=== PATIENT | male | born 1950 | race Caucasian/White ===

== ENCOUNTER 2017-03-27 14:49 | Inpatient (IN) | payer OTHER ==
[~2017-03-27] VITALS: Ht 193 cm; Wt 192.1 kg
[~2017-03-27 14:49] MED LIST: ACET325 PO; ALBU3IS INH; ALIGN PO; AMLO5 PO; AMOX1XR PO; ASCO500 PO; ASPI325EC; ASPI81CH PO; ASPI81EC PO; ATOR10 PO; BAYER CHEWABLE81 MG PO; BENA10 PO; BENA20 PO; BENAML10/5 PO; BENAML20/5 PO; BISA10S PR; BUME1 PO; BUME2 PO; Benadryl25 MG PO; CEPH500 PO; CHOL10002 PO; CIPR500 PO; CLIN300 PO; COLL250TO TOP; CYAN1000 PO; CYAN1000I PO; Ceftriaxone2 G2 IV; Cholestyramine R5 GM MC; Cipro500 MG PO; Clindamycin HC300 MG PO; DIPATR PO; DOCU100 PO; DOXY100 PO; FURO20 PO; FURO80; FURO80 PO; HYDR1TAB94 PO; INSLI100I SC; INSLI100I SQ; INSLI100I SUBQ; INSU100I6 SC; INSUASPI SC; INSULANI SC; INSULANI SQ; INSULANI SUBQ; INSULANPEN SC; INVOKANA300 MG PO; LEVFLO500 PO; LIRA0.6P SQ; LOSA25 PO; LOVA40 PO; METF500 PO; MULVITMINF PO; NYST100P TOP; Novolog100 UNIT/2 SC; Nystatin15 GM TP; POLY17UD PO; POLY500 PO; POTCHL20ER PO; PRED10 PO; SACC250C PO; SANTYL TP; SILSUL1TC TOP; SPIR25 PO; SPIR50 PO; SULTRIDS PO; TERB250 PO; VANCOMYCIN; Ventolin Soln3 ML INH
[2017-03-27 15:49] LABS: BASOPHILS ABSOLUTE AUTO 0.04 K/mm3 (0.00-0.23); BASOPHILS PERCENT AUTO 0 % (0-2); EOSINOPHILS ABSOLUTE AUTO 0.39 K/mm3 (0.00-0.68); EOSINOPHILS PERCENT AUTO 4 % (0-6); Hematocrit 37.9 % (37.0-53.0); Hemoglobin 12.8 g/dL (13.5-17.5); IMMATURE GRAN ABSOLUTE AUTO 0.02 K/mm3 (0.00-0.10); IMMATURE GRAN PERCENT AUTO 0 % (0-1); LYMPHOCYTES ABSOLUTE AUTO 1.87 K/mm3 (0.84-5.20); LYMPHOCYTES PERCENT AUTO 17 % (21-46); MONOCYTES ABSOLUTE AUTO 0.65 K/mm3 (0.16-1.47); MONOCYTES PERCENT AUTO 6 % (4-13); Mean Corpuscular HGB 29.1 pg (26.0-34.0); Mean Corpuscular HGB Conc 33.8 g/dL (31.5-36.5); Mean Corpuscular Volume 86 fL (80-100); Mean Platelet Volume 10.7 fL (9.1-12.4); NEUTROPHILS ABSOLUTE AUTO 7.81 K/mm3 (1.96-9.15); NEUTROPHILS PERCENT AUTO 73 % (41-73); Platelet Count 217 K/mm3 (150-400); RDW Coefficient Variation 14.2 % (11.7-14.2); RDW Standard Deviation 44.8 fL (35.1-46.3); White Blood Cell Count 10.78 K/mm3 (4.00-11.30)
[2017-03-27 16:48] LABS: Anion Gap 7 mmol/L (6-16); Blood Urea Nitrogen 23 mg/dL (8-24); Bun/Creatinine Ratio 30.9 (12.0-20.0); CO2, Blood 28 mmol/L (21-32); Calcium, Blood 9.3 mg/dL (8.5-10.1); Chloride, Blood 103 mmol/L (98-108); Creatinine, Blood 0.75 mg/dL (0.60-1.20); Glomerular Filtration Rate >60 (60-); Glucose, Blood 200 mg/dL (70-99); Potassium, Blood 3.9 mmol/L (3.5-5.5); Sodium, Blood 138 mmol/L (136-145)
[2017-03-27 17:04] LABS: Source, Urine Urostomy Bag
[2017-03-27 17:20] LABS: Bilirubin, Urine Neg (Neg); Blood, Urine 3+ (Neg); Glucose Qualitative, Urine Neg (Neg); Ketones, Urine Neg (Neg); Leukocyte Esterase, Urine 3+ (Neg); Nitrite, Urine Neg (Neg); Protein, Urine 2+ (Neg); Urobilinogen, Urine NORM (Normal); pH, Urine 6.5 (5.0-8.0)
[2017-03-27 17:26] LABS: Appearance, Urine Clear (Clear); Color, Urine Yellow (P-Yellow)
[2017-03-27 17:27] LABS: White Blood Cells, Urine TNTC /hpf (0-5)
[2017-03-27 17:28] LABS: Bacteria Few /hpf; Squamous Epithelial Cells Not Seen /hpf (Few)
[2017-03-28 06:29] LABS: Anion Gap 7 mmol/L (6-16); Blood Urea Nitrogen 19 mg/dL (8-24); Bun/Creatinine Ratio 27.5 (12.0-20.0); CO2, Blood 30 mmol/L (21-32); Chloride, Blood 105 mmol/L (98-108); Creatinine, Blood 0.69 mg/dL (0.60-1.20); Glomerular Filtration Rate >60 (60-); Glucose, Blood 146 mg/dL (70-99); Potassium, Blood 3.6 mmol/L (3.5-5.5); Sodium, Blood 142 mmol/L (136-145)
[2017-03-30 06:30] LABS: Anion Gap 4 mmol/L (6-16); Blood Urea Nitrogen 18 mg/dL (8-24); Bun/Creatinine Ratio 21.9 (12.0-20.0); CO2, Blood 32 mmol/L (21-32); Calcium, Blood 8.8 mg/dL (8.5-10.1); Chloride, Blood 104 mmol/L (98-108); Creatinine, Blood 0.82 mg/dL (0.60-1.20); Glomerular Filtration Rate >60 (60-); Glucose, Blood 127 mg/dL (70-99); Potassium, Blood 3.9 mmol/L (3.5-5.5); Sodium, Blood 140 mmol/L (136-145)
[2017-03-31 05:49] LABS: Anion Gap 5 mmol/L (6-16); Blood Urea Nitrogen 18 mg/dL (8-24); Bun/Creatinine Ratio 20.3 (12.0-20.0); CO2, Blood 30 mmol/L (21-32); Calcium, Blood 8.9 mg/dL (8.5-10.1); Chloride, Blood 104 mmol/L (98-108); Creatinine, Blood 0.89 mg/dL (0.60-1.20); Glomerular Filtration Rate >60 (60-); Glucose, Blood 130 mg/dL (70-99); Potassium, Blood 4.1 mmol/L (3.5-5.5); Sodium, Blood 139 mmol/L (136-145)
[2017-04-01] MEDS ORDERED: Pedi-Dri 100,0060 GM TOP (14:28)
[2017-04-01] MEDS ORDERED: Bactrim Ds Tab1 EACH PO (14:30)
== END 2017-04-01 15:04 | DRG 699 ==
LOC: ER 14:49 → MEDS 19:18
PROVIDERS: Emergency Medicine; Internal Medicine
DX: T83.511A Infection and inflammatory reaction due to indwelling urethral catheter, initial encounter (principal); L97.919 Non-pressure chronic ulcer of unspecified part of right lower leg with unspecified severity; E11.22 Type 2 diabetes mellitus with diabetic chronic kidney disease; E11.40 Type 2 diabetes mellitus with diabetic neuropathy, unspecified; Z68.42 Body mass index [BMI] 45.0-49.9, adult; E66.01 Morbid (severe) obesity due to excess calories; E11.65 Type 2 diabetes mellitus with hyperglycemia; E11.622 Type 2 diabetes mellitus with other skin ulcer; B95.61 Methicillin susceptible Staphylococcus aureus infection as the cause of diseases classified elsewhere; B95.2 Enterococcus as the cause of diseases classified elsewhere; E78.5 Hyperlipidemia, unspecified; G47.33 Obstructive sleep apnea (adult) (pediatric); I95.1 Orthostatic hypotension; N39.0 Urinary tract infection, site not specified; N18.3 Chronic kidney disease, stage 3 (moderate); J44.9 Chronic obstructive pulmonary disease, unspecified; Z66 Do not resuscitate; Z89.512 Acquired absence of left leg below knee; Z99.3 Dependence on wheelchair; Z99.89 Dependence on other enabling machines and devices; Z87.891 Personal history of nicotine dependence; Z88.8 Allergy status to other drugs, medicaments and biological substances; Z79.82 Long term (current) use of aspirin; Z79.4 Long term (current) use of insulin; Z79.899 Other long term (current) drug therapy; Z91.14 Patient's other noncompliance with medication regimen
CPT/HCPCS: 36415; 51702; 80048; 81001; 82947; 83880; 85025; 87077; 87086; 87186; 94760; 94762; 97162; 97530; 99285; G8978; G8979; J0696; J1650; J1815

== ENCOUNTER 2017-04-26 15:52 | Observation (INO) | payer OTHER ==
[~2017-04-26] VITALS: Ht 193 cm; Wt 188.0 kg
[~2017-04-26 15:52] MED LIST changes: +Bactrim Ds Tab1 EACH PO; +Pedi-Dri 100,0060 GM TOP
[2017-04-26 17:35] LABS: BASOPHILS ABSOLUTE AUTO 0.06 K/mm3 (0.00-0.23); BASOPHILS PERCENT AUTO 1 % (0-2); EOSINOPHILS PERCENT AUTO 4 % (0-6); Hematocrit 40.2 % (37.0-53.0); Hemoglobin 13.1 g/dL (13.5-17.5); IMMATURE GRAN ABSOLUTE AUTO 0.02 K/mm3 (0.00-0.10); IMMATURE GRAN PERCENT AUTO 0 % (0-1); LYMPHOCYTES ABSOLUTE AUTO 1.95 K/mm3 (0.84-5.20); LYMPHOCYTES PERCENT AUTO 20 % (21-46); MONOCYTES ABSOLUTE AUTO 0.93 K/mm3 (0.16-1.47); MONOCYTES PERCENT AUTO 9 % (4-13); Mean Corpuscular HGB 28.8 pg (26.0-34.0); Mean Corpuscular HGB Conc 32.6 g/dL (31.5-36.5); Mean Corpuscular Volume 88 fL (80-100); Mean Platelet Volume 10.9 fL (9.1-12.4); NEUTROPHILS ABSOLUTE AUTO 6.58 K/mm3 (1.96-9.15); NEUTROPHILS PERCENT AUTO 66 % (41-73); Platelet Count 231 K/mm3 (150-400); RDW Coefficient Variation 14.1 % (11.7-14.2); RDW Standard Deviation 45.5 fL (35.1-46.3); Red Blood Cell Count 4.55 M/mm3 (4.30-5.90); White Blood Cell Count 9.94 K/mm3 (4.00-11.30)
[2017-04-26 17:56] LABS: Alanine Aminotransfer (ALT/SGP 14 U/L (12-78); Albumin, Blood 3.3 g/dL (3.4-5.0); Albumin/Globulin Ratio 0.8 (0.8-1.8); Alk Phos 91 U/L (50-136); Anion Gap 6 mmol/L (6-16); Aspartate Aminotrans (AST/SGOT 11 U/L (12-37); Bilirubin, Total 0.5 mg/dL (0.1-1.0); Blood Urea Nitrogen 23 mg/dL (8-24); Bun/Creatinine Ratio 25.4 (12.0-20.0); CO2, Blood 31 mmol/L (21-32); Calcium, Blood 9.1 mg/dL (8.5-10.1); Chloride, Blood 99 mmol/L (98-108); Creatinine, Blood 0.91 mg/dL (0.60-1.20); Globulin, Blood 4.3 g/dL (2.2-4.0); Glomerular Filtration Rate >60 (60-); Glucose, Blood 301 mg/dL (70-99); Potassium, Blood 3.8 mmol/L (3.5-5.5); Sodium, Blood 136 mmol/L (136-145); Total Protein, Blood 7.6 g/dL (6.4-8.2)
[2017-04-27 01:47] LABS: Source, Urine Clean Catch
[2017-04-27 01:52] LABS: Bilirubin, Urine Neg (Neg); Blood, Urine 3+ (Neg); Glucose Qualitative, Urine Neg (Neg); Ketones, Urine Neg (Neg); Leukocyte Esterase, Urine 3+ (Neg); Nitrite, Urine Neg (Neg); Protein, Urine 2+ (Neg); Specific Gravity, Urine 1.015 (1.003-1.022); Urobilinogen, Urine NORM (Normal)
[2017-04-27 02:29] LABS: Appearance, Urine Cloudy (Clear); Color, Urine Yellow (P-Yellow)
[2017-04-27 02:30] LABS: Bacteria Many /hpf; Squamous Epithelial Cells Few /hpf (Few); Transitional Epithelial Cells Few /hpf (0-Rare); White Blood Cells, Urine TNTC /hpf (0-5)
[2017-04-27 05:01] LABS: BASOPHILS ABSOLUTE AUTO 0.05 K/mm3 (0.00-0.23); BASOPHILS PERCENT AUTO 1 % (0-2); EOSINOPHILS ABSOLUTE AUTO 0.43 K/mm3 (0.00-0.68); EOSINOPHILS PERCENT AUTO 6 % (0-6); Hematocrit 37.6 % (37.0-53.0); Hemoglobin 12.4 g/dL (13.5-17.5); IMMATURE GRAN ABSOLUTE AUTO 0.02 K/mm3 (0.00-0.10); IMMATURE GRAN PERCENT AUTO 0 % (0-1); LYMPHOCYTES ABSOLUTE AUTO 2.11 K/mm3 (0.84-5.20); LYMPHOCYTES PERCENT AUTO 27 % (21-46); MONOCYTES ABSOLUTE AUTO 0.75 K/mm3 (0.16-1.47); MONOCYTES PERCENT AUTO 10 % (4-13); Mean Corpuscular Volume 88 fL (80-100); Mean Platelet Volume 11.2 fL (9.1-12.4); NEUTROPHILS ABSOLUTE AUTO 4.49 K/mm3 (1.96-9.15); NEUTROPHILS PERCENT AUTO 57 % (41-73); Platelet Count 196 K/mm3 (150-400); RDW Standard Deviation 45.1 fL (35.1-46.3); Red Blood Cell Count 4.28 M/mm3 (4.30-5.90); White Blood Cell Count 7.85 K/mm3 (4.00-11.30)
[2017-04-27 05:25] LABS: Alanine Aminotransfer (ALT/SGP 14 U/L (12-78); Albumin, Blood 2.9 g/dL (3.4-5.0); Albumin/Globulin Ratio 0.7 (0.8-1.8); Alk Phos 83 U/L (50-136); Anion Gap 8 mmol/L (6-16); Aspartate Aminotrans (AST/SGOT 9 U/L (12-37); Bilirubin, Total 0.4 mg/dL (0.1-1.0); Blood Urea Nitrogen 23 mg/dL (8-24); Bun/Creatinine Ratio 27.2 (12.0-20.0); CO2, Blood 30 mmol/L (21-32); Calcium, Blood 8.6 mg/dL (8.5-10.1); Chloride, Blood 103 mmol/L (98-108); Creatinine, Blood 0.85 mg/dL (0.60-1.20); Globulin, Blood 4.2 g/dL (2.2-4.0); Glomerular Filtration Rate >60 (60-); Glucose, Blood 184 mg/dL (70-99); Potassium, Blood 3.5 mmol/L (3.5-5.5); Sodium, Blood 141 mmol/L (136-145); Total Protein, Blood 7.1 g/dL (6.4-8.2)
[2017-04-27 22:06] LABS: Vancomycin, Trough 20.2 ug/mL (5.0-10.0)
[2017-04-30] MEDS ORDERED: ALBU2.5V5 NEB (12:34)
[2017-04-30] MEDS ORDERED: LISI5 PO (12:35)
[2017-04-30] MEDS ORDERED: CEPH500 PO (12:35)
[2017-04-30] MEDS ORDERED: PROBIOTIC1 EAC5 PO (12:37)
== END 2017-04-30 15:42 ==
LOC: ER 15:52 → MEDS 15:53 → ENPENDDIS 04-30 12:05 → MEDS 04-30 15:42
PROVIDERS: Internal Medicine; Student in an Organized Health Care Education/Training Program
DX: E11.621 Type 2 diabetes mellitus with foot ulcer (principal); J44.9 Chronic obstructive pulmonary disease, unspecified; E66.01 Morbid (severe) obesity due to excess calories; G47.33 Obstructive sleep apnea (adult) (pediatric); N39.0 Urinary tract infection, site not specified; E11.65 Type 2 diabetes mellitus with hyperglycemia; I10 Essential (primary) hypertension; Z99.89 Dependence on other enabling machines and devices; Z74.09 Other reduced mobility; Z79.4 Long term (current) use of insulin; Z79.82 Long term (current) use of aspirin; Z79.899 Other long term (current) drug therapy; Z88.8 Allergy status to other drugs, medicaments and biological substances; Z89.512 Acquired absence of left leg below knee; E86.0 Dehydration; Z68.42 Body mass index [BMI] 45.0-49.9, adult
CPT/HCPCS: 36415; 73630; 80053; 80202; 81001; 82947; 85025; 87077; 87086; 87186; 94640; 94760; 96361; 96365; 96366; 96367; 96372; 97161; 97166; 97530; 99285; G0378; G8978; G8979; G8980; G8987; G8988; G8989; J0696; J1650; J1815; J3370; J7030; J7050

== ENCOUNTER → 2017-07-04 | Outpatient (CLI) | payer OTHER ==
[~2017-07-04] MED LIST changes: +ALBU2.5V5 NEB; +INSU100I6; -INSU100I6 SC; +LISI5 PO; +PROBIOTIC1 EAC5 PO
== END ==
LOC: LAB UVN 11:16 → EDSTATUS 11:58
DX: E11.621 Type 2 diabetes mellitus with foot ulcer (principal); L97.509 Non-pressure chronic ulcer of other part of unspecified foot with unspecified severity; I73.9 Peripheral vascular disease, unspecified
CPT/HCPCS: 87070; 87077; 87186; 87205

== ENCOUNTER 2017-07-08 12:01 | Day surgery (SDC) | payer OTHER | END 2017-07-08 23:19 | disposition home or self-care (01) | LOC: WOUND 12:01 | DX: Z48.00 Encounter for change or removal of nonsurgical wound dressing (principal); E11.621 Type 2 diabetes mellitus with foot ulcer; L97.512 Non-pressure chronic ulcer of other part of right foot with fat layer exposed; I10 Essential (primary) hypertension; I73.9 Peripheral vascular disease, unspecified; G47.33 Obstructive sleep apnea (adult) (pediatric); J44.9 Chronic obstructive pulmonary disease, unspecified; E66.01 Morbid (severe) obesity due to excess calories; M62.81 Muscle weakness (generalized); E11.42 Type 2 diabetes mellitus with diabetic polyneuropathy | CPT/HCPCS: G0463 ==

== ENCOUNTER 2017-08-05 11:00 | Day surgery (SDC) | payer OTHER ==
[~2017-08-05 11:00] MED LIST changes: -INSU100I6; +INSU100I6 SC
== END 2017-08-05 12:06 | disposition home or self-care (01) ==
LOC: WOUND 11:00
DX: Z48.00 Encounter for change or removal of nonsurgical wound dressing (principal); E11.621 Type 2 diabetes mellitus with foot ulcer; L97.419 Non-pressure chronic ulcer of right heel and midfoot with unspecified severity; I10 Essential (primary) hypertension; I73.9 Peripheral vascular disease, unspecified; G47.33 Obstructive sleep apnea (adult) (pediatric); J44.9 Chronic obstructive pulmonary disease, unspecified; E66.01 Morbid (severe) obesity due to excess calories; M62.81 Muscle weakness (generalized); E11.42 Type 2 diabetes mellitus with diabetic polyneuropathy
CPT/HCPCS: G0463

== ENCOUNTER 2017-08-05 12:08 | Inpatient (IN) | payer OTHER ==
[~2017-08-05] VITALS: Ht 193 cm; Wt 173.1 kg
[2017-08-05 15:06] LABS: BASOPHILS ABSOLUTE AUTO 0.09 K/mm3 (0.00-0.23); BASOPHILS PERCENT AUTO 1 % (0-2); EOSINOPHILS ABSOLUTE AUTO 0.41 K/mm3 (0.00-0.68); EOSINOPHILS PERCENT AUTO 3 % (0-6); Hematocrit 36.7 % (37.0-53.0); Hemoglobin 12.2 g/dL (13.5-17.5); IMMATURE GRAN ABSOLUTE AUTO 0.05 K/mm3 (0.00-0.10); IMMATURE GRAN PERCENT AUTO 0 % (0-1); LYMPHOCYTES ABSOLUTE AUTO 1.94 K/mm3 (0.84-5.20); LYMPHOCYTES PERCENT AUTO 16 % (21-46); MONOCYTES ABSOLUTE AUTO 0.92 K/mm3 (0.16-1.47); MONOCYTES PERCENT AUTO 7 % (4-13); Mean Corpuscular HGB 29.7 pg (26.0-34.0); Mean Corpuscular HGB Conc 33.2 g/dL (31.5-36.5); Mean Corpuscular Volume 89 fL (80-100); Mean Platelet Volume 11.7 fL (9.1-12.4); NEUTROPHILS ABSOLUTE AUTO 9.09 K/mm3 (1.96-9.15); NEUTROPHILS PERCENT AUTO 73 % (41-73); Platelet Count 261 K/mm3 (150-400); RDW Coefficient Variation 14.6 % (11.7-14.2); Red Blood Cell Count 4.11 M/mm3 (4.30-5.90)
[2017-08-05 15:24] LABS: Albumin, Blood 2.8 g/dL (3.4-5.0); Albumin/Globulin Ratio 0.5 (0.8-1.8); Bilirubin, Total 0.4 mg/dL (0.1-1.0); Bun/Creatinine Ratio 33.8 (12.0-20.0); Calcium, Blood 9.3 mg/dL (8.5-10.1); Creatinine, Blood 1.36 mg/dL (0.60-1.20); Globulin, Blood 5.5 g/dL (2.2-4.0); Total Protein, Blood 8.3 g/dL (6.4-8.2)
[2017-08-06 04:03] LABS: BASOPHILS PERCENT AUTO 1 % (0-2); EOSINOPHILS ABSOLUTE AUTO 0.54 K/mm3 (0.00-0.68); EOSINOPHILS PERCENT AUTO 5 % (0-6); Hematocrit 37.1 % (37.0-53.0); Hemoglobin 12.1 g/dL (13.5-17.5); IMMATURE GRAN ABSOLUTE AUTO 0.03 K/mm3 (0.00-0.10); IMMATURE GRAN PERCENT AUTO 0 % (0-1); LYMPHOCYTES ABSOLUTE AUTO 2.31 K/mm3 (0.84-5.20); LYMPHOCYTES PERCENT AUTO 23 % (21-46); MONOCYTES ABSOLUTE AUTO 0.85 K/mm3 (0.16-1.47); MONOCYTES PERCENT AUTO 9 % (4-13); Mean Corpuscular HGB 29.2 pg (26.0-34.0); Mean Corpuscular HGB Conc 32.6 g/dL (31.5-36.5); Mean Corpuscular Volume 89 fL (80-100); Mean Platelet Volume 11.6 fL (9.1-12.4); NEUTROPHILS ABSOLUTE AUTO 6.12 K/mm3 (1.96-9.15); NEUTROPHILS PERCENT AUTO 62 % (41-73); Platelet Count 210 K/mm3 (150-400); RDW Coefficient Variation 14.6 % (11.7-14.2); RDW Standard Deviation 47.4 fL (35.1-46.3); Red Blood Cell Count 4.15 M/mm3 (4.30-5.90); White Blood Cell Count 9.95 K/mm3 (4.00-11.30)
[2017-08-06 04:22] LABS: Alanine Aminotransfer (ALT/SGP 12 U/L (12-78); Albumin, Blood 2.8 g/dL (3.4-5.0); Albumin/Globulin Ratio 0.5 (0.8-1.8); Alk Phos 82 U/L (50-136); Anion Gap 7 mmol/L (6-16); Aspartate Aminotrans (AST/SGOT 11 U/L (12-37); Bilirubin, Total 0.4 mg/dL (0.1-1.0); Blood Urea Nitrogen 46 mg/dL (8-24); Bun/Creatinine Ratio 38.3 (12.0-20.0); CO2, Blood 25 mmol/L (21-32); Calcium, Blood 9.1 mg/dL (8.5-10.1); Chloride, Blood 104 mmol/L (98-108); Globulin, Blood 5.2 g/dL (2.2-4.0); Glomerular Filtration Rate >60 (60-); Glucose, Blood 180 mg/dL (70-99); Potassium, Blood 4.3 mmol/L (3.5-5.5); Sodium, Blood 136 mmol/L (136-145)
[2017-08-06 17:42] LABS: Vancomycin, Trough 33.7 ug/mL (5.0-10.0)
[2017-08-07 04:45] LABS: BASOPHILS ABSOLUTE AUTO 0.07 K/mm3 (0.00-0.23); BASOPHILS PERCENT AUTO 1 % (0-2); EOSINOPHILS ABSOLUTE AUTO 0.49 K/mm3 (0.00-0.68); EOSINOPHILS PERCENT AUTO 6 % (0-6); Hematocrit 32.8 % (37.0-53.0); Hemoglobin 10.8 g/dL (13.5-17.5); IMMATURE GRAN ABSOLUTE AUTO 0.02 K/mm3 (0.00-0.10); IMMATURE GRAN PERCENT AUTO 0 % (0-1); LYMPHOCYTES ABSOLUTE AUTO 2.18 K/mm3 (0.84-5.20); LYMPHOCYTES PERCENT AUTO 26 % (21-46); MONOCYTES ABSOLUTE AUTO 0.67 K/mm3 (0.16-1.47); MONOCYTES PERCENT AUTO 8 % (4-13); Mean Corpuscular HGB 29.2 pg (26.0-34.0); Mean Corpuscular HGB Conc 32.9 g/dL (31.5-36.5); Mean Corpuscular Volume 89 fL (80-100); Mean Platelet Volume 11.6 fL (9.1-12.4); NEUTROPHILS PERCENT AUTO 59 % (41-73); Platelet Count 214 K/mm3 (150-400); RDW Coefficient Variation 14.5 % (11.7-14.2); RDW Standard Deviation 46.5 fL (35.1-46.3); White Blood Cell Count 8.43 K/mm3 (4.00-11.30)
[2017-08-08 04:08] LABS: BASOPHILS ABSOLUTE AUTO 0.06 K/mm3 (0.00-0.23); BASOPHILS PERCENT AUTO 1 % (0-2); EOSINOPHILS ABSOLUTE AUTO 0.59 K/mm3 (0.00-0.68); EOSINOPHILS PERCENT AUTO 9 % (0-6); Hematocrit 31.6 % (37.0-53.0); Hemoglobin 10.5 g/dL (13.5-17.5); IMMATURE GRAN ABSOLUTE AUTO 0.02 K/mm3 (0.00-0.10); IMMATURE GRAN PERCENT AUTO 0 % (0-1); LYMPHOCYTES ABSOLUTE AUTO 1.75 K/mm3 (0.84-5.20); LYMPHOCYTES PERCENT AUTO 25 % (21-46); MONOCYTES ABSOLUTE AUTO 0.62 K/mm3 (0.16-1.47); MONOCYTES PERCENT AUTO 9 % (4-13); Mean Corpuscular HGB 29.3 pg (26.0-34.0); Mean Corpuscular HGB Conc 33.2 g/dL (31.5-36.5); Mean Corpuscular Volume 88 fL (80-100); Mean Platelet Volume 11.2 fL (9.1-12.4); NEUTROPHILS ABSOLUTE AUTO 3.84 K/mm3 (1.96-9.15); NEUTROPHILS PERCENT AUTO 56 % (41-73); Platelet Count 203 K/mm3 (150-400); RDW Coefficient Variation 14.2 % (11.7-14.2); RDW Standard Deviation 45.9 fL (35.1-46.3); Red Blood Cell Count 3.58 M/mm3 (4.30-5.90); White Blood Cell Count 6.88 K/mm3 (4.00-11.30)
[2017-08-08 04:26] LABS: Anion Gap 6 mmol/L (6-16); Blood Urea Nitrogen 28 mg/dL (8-24); Bun/Creatinine Ratio 27.5 (12.0-20.0); CO2, Blood 26 mmol/L (21-32); Calcium, Blood 8.4 mg/dL (8.5-10.1); Chloride, Blood 106 mmol/L (98-108); Creatinine, Blood 1.02 mg/dL (0.60-1.20); Glomerular Filtration Rate >60 (60-); Glucose, Blood 286 mg/dL (70-99); Potassium, Blood 4.5 mmol/L (3.5-5.5); Sodium, Blood 138 mmol/L (136-145); Vancomycin, Random 27.3 ug/mL
[2017-08-08 23:40] LABS: Vancomycin, Trough 18.3 ug/mL (5.0-10.0)
[2017-08-09] MEDS ORDERED: PANT40 PO (12:29)
[2017-08-09] MEDS ORDERED: CLIN300 PO (12:31)
[2017-08-09] MEDS ORDERED: LEVFLO500 PO (12:31)
[2017-08-09] MEDS ORDERED: Augmentin 875-1 EACH PO (12:33)
== END 2017-08-09 13:01 | DRG 629 ==
LOC: ER 12:08 → SURS 15:24 → MEDS 15:24 → ENPENDDIS 08-09 12:04 → MEDS 08-09 13:01
PROVIDERS: Emergency Medicine; Internal Medicine; Orthopaedic Surgery; Pharmacist
PROC: 0QBQ0ZZ Excision of Right Toe Phalanx, Open Approach (ICD-10-PCS; principal; 2017-08-09)
DX: E11.621 Type 2 diabetes mellitus with foot ulcer (principal); L03.115 Cellulitis of right lower limb; L97.519 Non-pressure chronic ulcer of other part of right foot with unspecified severity; E78.5 Hyperlipidemia, unspecified; E11.40 Type 2 diabetes mellitus with diabetic neuropathy, unspecified; J44.9 Chronic obstructive pulmonary disease, unspecified; E11.51 Type 2 diabetes mellitus with diabetic peripheral angiopathy without gangrene; G47.33 Obstructive sleep apnea (adult) (pediatric); Z87.891 Personal history of nicotine dependence; N17.9 Acute kidney failure, unspecified; E66.01 Morbid (severe) obesity due to excess calories
CPT/HCPCS: 36415; 71046; 73630; 73700; 80048; 80053; 80202; 82565; 82947; 83605; 85025; 87040; 87070; 87075; 87077; 87186; 87205; 93005; 93010; 93922; 94760; 96365; 96367; 99285; G0463; J0696; J1650; J1815; J2250; J2543; J3010; J3370; J7030; J7050

== ENCOUNTER 2017-08-20 09:25 | Inpatient (IN) | payer OTHER ==
[~2017-08-20] VITALS: Ht 190.5 cm; Wt 181.4 kg
[~2017-08-20 09:25] MED LIST changes: +Augmentin 875-1 EACH PO; +PANT40 PO
[2017-08-20 10:03] LABS: BASOPHILS ABSOLUTE AUTO 0.09 K/mm3 (0.00-0.23); BASOPHILS PERCENT AUTO 1 % (0-2); EOSINOPHILS ABSOLUTE AUTO 0.68 K/mm3 (0.00-0.68); EOSINOPHILS PERCENT AUTO 6 % (0-6); Hematocrit 34.7 % (37.0-53.0); Hemoglobin 11.2 g/dL (13.5-17.5); IMMATURE GRAN ABSOLUTE AUTO 0.03 K/mm3 (0.00-0.10); IMMATURE GRAN PERCENT AUTO 0 % (0-1); LYMPHOCYTES ABSOLUTE AUTO 2.24 K/mm3 (0.84-5.20); LYMPHOCYTES PERCENT AUTO 20 % (21-46); MONOCYTES ABSOLUTE AUTO 1.05 K/mm3 (0.16-1.47); MONOCYTES PERCENT AUTO 9 % (4-13); Mean Corpuscular HGB Conc 32.3 g/dL (31.5-36.5); Mean Corpuscular Volume 90 fL (80-100); Mean Platelet Volume 11.5 fL (9.1-12.4); NEUTROPHILS ABSOLUTE AUTO 7.12 K/mm3 (1.96-9.15); NEUTROPHILS PERCENT AUTO 63 % (41-73); Platelet Count 305 K/mm3 (150-400); RDW Coefficient Variation 14.6 % (11.7-14.2); RDW Standard Deviation 47.7 fL (35.1-46.3); Red Blood Cell Count 3.86 M/mm3 (4.30-5.90); White Blood Cell Count 11.21 K/mm3 (4.00-11.30)
[2017-08-20 10:23] LABS: Alanine Aminotransfer (ALT/SGP 12 U/L (12-78); Albumin, Blood 2.8 g/dL (3.4-5.0); Albumin/Globulin Ratio 0.5 (0.8-1.8); Alk Phos 75 U/L (50-136); Anion Gap 9 mmol/L (6-16); Aspartate Aminotrans (AST/SGOT 8 U/L (12-37); Bilirubin, Total 0.5 mg/dL (0.1-1.0); Blood Urea Nitrogen 26 mg/dL (8-24); Bun/Creatinine Ratio 20.6 (12.0-20.0); CO2, Blood 29 mmol/L (21-32); Calcium, Blood 9.3 mg/dL (8.5-10.1); Chloride, Blood 100 mmol/L (98-108); Creatinine, Blood 1.26 mg/dL (0.60-1.20); Globulin, Blood 5.4 g/dL (2.2-4.0); Glomerular Filtration Rate >60 (60-); Glucose, Blood 167 mg/dL (70-99); Potassium, Blood 3.7 mmol/L (3.5-5.5); Sodium, Blood 138 mmol/L (136-145); Total Protein, Blood 8.2 g/dL (6.4-8.2)
[2017-08-20] MEDS ORDERED: Acidophilus La100 GM PO (10:23)
[2017-08-20] MEDS ORDERED: ONDA4ODT MM (10:24)
[2017-08-20 12:35] LABS: International Normalized Ratio 1.07; Prothrombin Time Results 11.2 Sec (9.7-11.5)
[2017-08-20 17:07] LABS: Source, Urine Catheter
[2017-08-20 17:23] LABS: Appearance, Urine Hazy (Clear); Bilirubin, Urine Neg (Neg); Blood, Urine 2+ (Neg); Color, Urine Yellow (P-Yellow); Glucose Qualitative, Urine Neg (Neg); Ketones, Urine Neg (Neg); Leukocyte Esterase, Urine 2+ (Neg); Nitrite, Urine Neg (Neg); Protein, Urine 2+ (Neg); Urobilinogen, Urine NORM (Normal)
[2017-08-20 17:49] LABS: Bacteria Mod /hpf; Squamous Epithelial Cells Many /hpf (Few); White Blood Cells, Urine 25-50 /hpf (0-5)
[2017-08-21 05:53] LABS: BASOPHILS ABSOLUTE AUTO 0.06 K/mm3 (0.00-0.23); BASOPHILS PERCENT AUTO 1 % (0-2); EOSINOPHILS ABSOLUTE AUTO 0.59 K/mm3 (0.00-0.68); EOSINOPHILS PERCENT AUTO 8 % (0-6); Hematocrit 30.1 % (37.0-53.0); IMMATURE GRAN ABSOLUTE AUTO 0.02 K/mm3 (0.00-0.10); IMMATURE GRAN PERCENT AUTO 0 % (0-1); LYMPHOCYTES ABSOLUTE AUTO 1.56 K/mm3 (0.84-5.20); LYMPHOCYTES PERCENT AUTO 22 % (21-46); MONOCYTES ABSOLUTE AUTO 0.82 K/mm3 (0.16-1.47); MONOCYTES PERCENT AUTO 11 % (4-13); Mean Corpuscular HGB 29.1 pg (26.0-34.0); Mean Corpuscular HGB Conc 33.2 g/dL (31.5-36.5); Mean Corpuscular Volume 88 fL (80-100); NEUTROPHILS ABSOLUTE AUTO 4.22 K/mm3 (1.96-9.15); NEUTROPHILS PERCENT AUTO 58 % (41-73); RDW Coefficient Variation 14.5 % (11.7-14.2); RDW Standard Deviation 46.4 fL (35.1-46.3); Red Blood Cell Count 3.44 M/mm3 (4.30-5.90); White Blood Cell Count 7.27 K/mm3 (4.00-11.30)
[2017-08-21 06:12] LABS: Anion Gap 8 mmol/L (6-16); Blood Urea Nitrogen 19 mg/dL (8-24); Bun/Creatinine Ratio 20.6 (12.0-20.0); CO2, Blood 25 mmol/L (21-32); Chloride, Blood 109 mmol/L (98-108); Creatinine, Blood 0.92 mg/dL (0.60-1.20); Glomerular Filtration Rate >60 (60-); Glucose, Blood 186 mg/dL (70-99); Potassium, Blood 4.1 mmol/L (3.5-5.5); Sodium, Blood 142 mmol/L (136-145)
[2017-08-21 06:25] LABS: Mean Platelet Volume 11.5 fL (9.1-12.4); Platelet Count 174 K/mm3 (150-400)
[2017-08-21 11:08] LABS: Vancomycin, Trough 33.1 ug/mL (5.0-10.0)
[2017-08-22 05:40] LABS: BASOPHILS ABSOLUTE AUTO 0.06 K/mm3 (0.00-0.23); BASOPHILS PERCENT AUTO 1 % (0-2); EOSINOPHILS ABSOLUTE AUTO 0.66 K/mm3 (0.00-0.68); EOSINOPHILS PERCENT AUTO 10 % (0-6); Hematocrit 30.5 % (37.0-53.0); IMMATURE GRAN ABSOLUTE AUTO 0.01 K/mm3 (0.00-0.10); IMMATURE GRAN PERCENT AUTO 0 % (0-1); LYMPHOCYTES PERCENT AUTO 32 % (21-46); MONOCYTES ABSOLUTE AUTO 0.75 K/mm3 (0.16-1.47); MONOCYTES PERCENT AUTO 11 % (4-13); Mean Corpuscular HGB 29.2 pg (26.0-34.0); Mean Corpuscular HGB Conc 32.8 g/dL (31.5-36.5); Mean Corpuscular Volume 89 fL (80-100); Mean Platelet Volume 10.9 fL (9.1-12.4); NEUTROPHILS ABSOLUTE AUTO 3.06 K/mm3 (1.96-9.15); NEUTROPHILS PERCENT AUTO 46 % (41-73); Platelet Count 236 K/mm3 (150-400); RDW Coefficient Variation 14.5 % (11.7-14.2); Red Blood Cell Count 3.43 M/mm3 (4.30-5.90); White Blood Cell Count 6.64 K/mm3 (4.00-11.30)
[2017-08-22 06:06] LABS: Anion Gap 5 mmol/L (6-16); Blood Urea Nitrogen 13 mg/dL (8-24); Bun/Creatinine Ratio 15.2 (12.0-20.0); CO2, Blood 28 mmol/L (21-32); Calcium, Blood 8.6 mg/dL (8.5-10.1); Chloride, Blood 112 mmol/L (98-108); Creatinine, Blood 0.86 mg/dL (0.60-1.20); Glomerular Filtration Rate >60 (60-); Glucose, Blood 58 mg/dL (70-99); Potassium, Blood 3.7 mmol/L (3.5-5.5); Sodium, Blood 145 mmol/L (136-145)
[2017-08-22 12:27] LABS: Vancomycin, Trough 29.6 ug/mL (5.0-10.0)
[2017-08-23 05:17] LABS: BASOPHILS ABSOLUTE AUTO 0.05 K/mm3 (0.00-0.23); BASOPHILS PERCENT AUTO 1 % (0-2); EOSINOPHILS ABSOLUTE AUTO 0.64 K/mm3 (0.00-0.68); EOSINOPHILS PERCENT AUTO 10 % (0-6); Hematocrit 30.5 % (37.0-53.0); IMMATURE GRAN ABSOLUTE AUTO 0.01 K/mm3 (0.00-0.10); IMMATURE GRAN PERCENT AUTO 0 % (0-1); LYMPHOCYTES ABSOLUTE AUTO 1.71 K/mm3 (0.84-5.20); LYMPHOCYTES PERCENT AUTO 27 % (21-46); MONOCYTES ABSOLUTE AUTO 0.65 K/mm3 (0.16-1.47); MONOCYTES PERCENT AUTO 10 % (4-13); Mean Corpuscular HGB 28.8 pg (26.0-34.0); Mean Corpuscular HGB Conc 32.8 g/dL (31.5-36.5); Mean Corpuscular Volume 88 fL (80-100); NEUTROPHILS ABSOLUTE AUTO 3.32 K/mm3 (1.96-9.15); NEUTROPHILS PERCENT AUTO 52 % (41-73); RDW Coefficient Variation 14.5 % (11.7-14.2); RDW Standard Deviation 46.4 fL (35.1-46.3); Red Blood Cell Count 3.47 M/mm3 (4.30-5.90); White Blood Cell Count 6.38 K/mm3 (4.00-11.30)
[2017-08-23 05:36] LABS: Mean Platelet Volume 11.4 fL (9.1-12.4); Platelet Count 104 K/mm3 (150-400)
[2017-08-23 05:38] LABS: Anion Gap 5 mmol/L (6-16); Blood Urea Nitrogen 12 mg/dL (8-24); Bun/Creatinine Ratio 15.3 (12.0-20.0); CO2, Blood 26 mmol/L (21-32); Calcium, Blood 8.2 mg/dL (8.5-10.1); Chloride, Blood 110 mmol/L (98-108); Creatinine, Blood 0.78 mg/dL (0.60-1.20); Glomerular Filtration Rate >60 (60-); Glucose, Blood 196 mg/dL (70-99); Potassium, Blood 3.9 mmol/L (3.5-5.5); Sodium, Blood 141 mmol/L (136-145); Vancomycin, Random 21.4 ug/mL
[2017-08-23] MEDS ORDERED: LEVEMIR FL100 UNIT/1 SC (13:17)
[2017-08-23] MEDS ORDERED: CEPH500 PO (13:18)
== END 2017-08-23 15:53 | DRG 871 ==
LOC: ER 09:25 → MEDS 11:58 → ER 13:35 → MEDS 13:35 → ENPENDDIS 08-23 09:48 → MEDS 08-23 15:53
PROVIDERS: Emergency Medicine; Family Medicine
DX: A41.9 Sepsis, unspecified organism (principal); J96.01 Acute respiratory failure with hypoxia; L03.115 Cellulitis of right lower limb; N17.9 Acute kidney failure, unspecified; Z68.43 Body mass index [BMI] 50.0-59.9, adult; L97.419 Non-pressure chronic ulcer of right heel and midfoot with unspecified severity; E11.610 Type 2 diabetes mellitus with diabetic neuropathic arthropathy; E11.51 Type 2 diabetes mellitus with diabetic peripheral angiopathy without gangrene; E11.65 Type 2 diabetes mellitus with hyperglycemia; E11.22 Type 2 diabetes mellitus with diabetic chronic kidney disease; I12.9 Hypertensive chronic kidney disease with stage 1 through stage 4 chronic kidney disease, or unspecified chronic kidney disease; N18.2 Chronic kidney disease, stage 2 (mild); I89.0 Lymphedema, not elsewhere classified; E11.42 Type 2 diabetes mellitus with diabetic polyneuropathy; J44.9 Chronic obstructive pulmonary disease, unspecified; G47.33 Obstructive sleep apnea (adult) (pediatric); E66.01 Morbid (severe) obesity due to excess calories; E78.5 Hyperlipidemia, unspecified; E11.621 Type 2 diabetes mellitus with foot ulcer; M62.81 Muscle weakness (generalized); Z79.2 Long term (current) use of antibiotics; Z79.82 Long term (current) use of aspirin; Z89.512 Acquired absence of left leg below knee; Z88.8 Allergy status to other drugs, medicaments and biological substances; Z87.891 Personal history of nicotine dependence; Z79.4 Long term (current) use of insulin; Z79.899 Other long term (current) drug therapy
CPT/HCPCS: 36415; 71046; 80048; 80053; 80202; 81001; 82947; 83036; 83605; 83880; 84443; 85025; 85610; 85730; 86140; 87040; 93005; 93010; 93926; 96365; 96366; 97110; 97163; 97167; 97530; 97535; 99285; G8978; G8979; G8987; G8988; J0696; J1650; J1815; J3370; J7030; J7050

== ENCOUNTER 2017-09-20 09:02 | Day surgery (SDC) | payer OTHER ==
[~2017-09-20 09:02] MED LIST changes: +Acidophilus La100 GM PO; +LEVEMIR FL100 UNIT/1 SC; +ONDA4ODT MM
== END 2017-09-20 11:00 | disposition home or self-care (01) ==
LOC: WOUND 09:02
DX: E11.621 Type 2 diabetes mellitus with foot ulcer (principal); E11.42 Type 2 diabetes mellitus with diabetic polyneuropathy; I73.9 Peripheral vascular disease, unspecified; I10 Essential (primary) hypertension; G47.33 Obstructive sleep apnea (adult) (pediatric); J44.9 Chronic obstructive pulmonary disease, unspecified; E66.01 Morbid (severe) obesity due to excess calories; M62.81 Muscle weakness (generalized); Z53.9 Procedure and treatment not carried out, unspecified reason
CPT/HCPCS: G0463

== ENCOUNTER 2017-09-20 12:58 | Emergency (ER) | payer OTHER ==
[~2017-09-20] VITALS: Ht 182.9 cm; Wt 158.8 kg
[2017-09-20 13:53] LABS: BASOPHILS ABSOLUTE AUTO 0.11 K/mm3 (0.00-0.23); BASOPHILS PERCENT AUTO 1 % (0-2); EOSINOPHILS ABSOLUTE AUTO 0.37 K/mm3 (0.00-0.68); EOSINOPHILS PERCENT AUTO 3 % (0-6); Hematocrit 38.1 % (37.0-53.0); Hemoglobin 12.2 g/dL (13.5-17.5); IMMATURE GRAN ABSOLUTE AUTO 0.04 K/mm3 (0.00-0.10); IMMATURE GRAN PERCENT AUTO 0 % (0-1); LYMPHOCYTES ABSOLUTE AUTO 2.07 K/mm3 (0.84-5.20); LYMPHOCYTES PERCENT AUTO 15 % (21-46); MONOCYTES ABSOLUTE AUTO 1.16 K/mm3 (0.16-1.47); MONOCYTES PERCENT AUTO 8 % (4-13); Mean Corpuscular HGB 28.2 pg (26.0-34.0); Mean Corpuscular Volume 88 fL (80-100); NEUTROPHILS ABSOLUTE AUTO 10.09 K/mm3 (1.96-9.15); NEUTROPHILS PERCENT AUTO 73 % (41-73); Platelet Count 389 K/mm3 (150-400); RDW Coefficient Variation 14.1 % (11.7-14.2); RDW Standard Deviation 45.1 fL (35.1-46.3); Red Blood Cell Count 4.32 M/mm3 (4.30-5.90); White Blood Cell Count 13.84 K/mm3 (4.00-11.30)
[2017-09-20 14:15] LABS: Alanine Aminotransfer (ALT/SGP 12 U/L (12-78); Albumin, Blood 2.9 g/dL (3.4-5.0); Albumin/Globulin Ratio 0.5 (0.8-1.8); Alk Phos 107 U/L (50-136); Anion Gap 9 mmol/L (6-16); Aspartate Aminotrans (AST/SGOT 11 U/L (12-37); Bilirubin, Total 0.4 mg/dL (0.1-1.0); Blood Urea Nitrogen 30 mg/dL (8-24); CO2, Blood 29 mmol/L (21-32); Calcium, Blood 9.6 mg/dL (8.5-10.1); Chloride, Blood 93 mmol/L (98-108); Creatinine, Blood 1.43 mg/dL (0.60-1.20); Globulin, Blood 5.9 g/dL (2.2-4.0); Glomerular Filtration Rate 52 (60-); Glucose, Blood 114 mg/dL (70-99); Potassium, Blood 4.3 mmol/L (3.5-5.5); Sodium, Blood 131 mmol/L (136-145); Total Protein, Blood 8.8 g/dL (6.4-8.2); Troponin I <0.015 ng/mL (0.000-0.040)
== END 2017-09-20 19:09 | disposition home or self-care (01) ==
LOC: ER 12:58
PROVIDERS: Emergency Medicine
DX: E86.0 Dehydration (principal); I95.9 Hypotension, unspecified; L89.619 Pressure ulcer of right heel, unspecified stage; E11.9 Type 2 diabetes mellitus without complications; I10 Essential (primary) hypertension; Z88.8 Allergy status to other drugs, medicaments and biological substances; Z88.6 Allergy status to analgesic agent; Z79.899 Other long term (current) drug therapy; Z79.82 Long term (current) use of aspirin; Z79.4 Long term (current) use of insulin; Z87.891 Personal history of nicotine dependence; Z89.612 Acquired absence of left leg above knee
CPT/HCPCS: 36415; 73600; 80053; 82947; 83605; 84484; 85025; 93005; 93010; 96360; 96361; 99284-25; J7030

== ENCOUNTER 2017-09-23 07:00 | Day surgery (SDC) | payer OTHER | END 2017-09-23 09:19 | disposition home or self-care (01) | LOC: WOUND 07:00 | DX: E11.621 Type 2 diabetes mellitus with foot ulcer (principal); L97.513 Non-pressure chronic ulcer of other part of right foot with necrosis of muscle; R60.0 Localized edema; I10 Essential (primary) hypertension; E11.51 Type 2 diabetes mellitus with diabetic peripheral angiopathy without gangrene; E11.42 Type 2 diabetes mellitus with diabetic polyneuropathy; G47.33 Obstructive sleep apnea (adult) (pediatric); E66.01 Morbid (severe) obesity due to excess calories; M62.81 Muscle weakness (generalized); J44.9 Chronic obstructive pulmonary disease, unspecified | CPT/HCPCS: G0463 ==

== ENCOUNTER 2017-09-30 07:49 | Emergency (ER) | payer OTHER ==
[~2017-09-30] VITALS: Ht 193 cm; Wt 171.9 kg
[2017-09-30 09:26] LABS: BASOPHILS ABSOLUTE AUTO 0.11 K/mm3 (0.00-0.23); BASOPHILS PERCENT AUTO 1 % (0-2); EOSINOPHILS ABSOLUTE AUTO 0.28 K/mm3 (0.00-0.68); EOSINOPHILS PERCENT AUTO 2 % (0-6); Hematocrit 38.6 % (37.0-53.0); Hemoglobin 12.4 g/dL (13.5-17.5); IMMATURE GRAN ABSOLUTE AUTO 0.08 K/mm3 (0.00-0.10); IMMATURE GRAN PERCENT AUTO 1 % (0-1); LYMPHOCYTES ABSOLUTE AUTO 1.61 K/mm3 (0.84-5.20); LYMPHOCYTES PERCENT AUTO 10 % (21-46); MONOCYTES ABSOLUTE AUTO 0.88 K/mm3 (0.16-1.47); MONOCYTES PERCENT AUTO 6 % (4-13); Mean Corpuscular HGB 28.2 pg (26.0-34.0); Mean Corpuscular HGB Conc 32.1 g/dL (31.5-36.5); Mean Corpuscular Volume 88 fL (80-100); Mean Platelet Volume 10.9 fL (9.1-12.4); NEUTROPHILS ABSOLUTE AUTO 12.53 K/mm3 (1.96-9.15); NEUTROPHILS PERCENT AUTO 81 % (41-73); Platelet Count 377 K/mm3 (150-400); RDW Coefficient Variation 14.2 % (11.7-14.2); RDW Standard Deviation 45.6 fL (35.1-46.3); White Blood Cell Count 15.49 K/mm3 (4.00-11.30)
[2017-09-30 09:37] LABS: International Normalized Ratio 1.08; Prothrombin Time Results 11.1 Sec (9.7-11.5)
[2017-09-30 09:46] LABS: Alanine Aminotransfer (ALT/SGP 8 U/L (12-78); Albumin, Blood 2.9 g/dL (3.4-5.0); Albumin/Globulin Ratio 0.5 (0.8-1.8); Alk Phos 86 U/L (50-136); Anion Gap 12 mmol/L (6-16); Aspartate Aminotrans (AST/SGOT 8 U/L (12-37); Bilirubin, Total 0.5 mg/dL (0.1-1.0); Blood Urea Nitrogen 36 mg/dL (8-24); Bun/Creatinine Ratio 18.1 (12.0-20.0); CO2, Blood 26 mmol/L (21-32); Calcium, Blood 9.2 mg/dL (8.5-10.1); Chloride, Blood 94 mmol/L (98-108); Creatinine, Blood 1.99 mg/dL (0.60-1.20); Globulin, Blood 5.4 g/dL (2.2-4.0); Glomerular Filtration Rate 36 (60-); Glucose, Blood 312 mg/dL (70-99); Potassium, Blood 4.7 mmol/L (3.5-5.5); Sodium, Blood 132 mmol/L (136-145); Total Protein, Blood 8.3 g/dL (6.4-8.2); Troponin I <0.015 ng/mL (0.000-0.040)
[2017-09-30 09:51] LABS: Base Excess Venous -0.1 mmol/L; Bicarbonate Venous 24.1 mmol/L (24.0-30.0); PO2 Venous 56.6 mmHg (38-42); pH Blood Venous 7.38 (7.34-7.37)
== END 2017-09-30 15:20 | disposition short-term general hospital (02) ==
LOC: ER 07:49
PROVIDERS: Emergency Medicine
DX: I10 Essential (primary) hypertension (principal); N17.9 Acute kidney failure, unspecified; I73.9 Peripheral vascular disease, unspecified; E66.9 Obesity, unspecified; G47.30 Sleep apnea, unspecified; R33.9 Retention of urine, unspecified; E11.9 Type 2 diabetes mellitus without complications; E78.5 Hyperlipidemia, unspecified; Z88.8 Allergy status to other drugs, medicaments and biological substances; Z88.6 Allergy status to analgesic agent; Z79.899 Other long term (current) drug therapy; Z79.82 Long term (current) use of aspirin; Z79.4 Long term (current) use of insulin; Z87.891 Personal history of nicotine dependence
CPT/HCPCS: 36415; 51610; 51798; 71045; 74450; 80053; 82803; 83605; 84484; 85025; 85610; 85730; 87040; 93005; 93010; 96361; 96365; 99285-25; J0690; J2543; J7030; Q9967

== ENCOUNTER → 2017-11-09 | Outpatient (CLI) | payer OTHER | END | disposition home or self-care (01) | LOC: LAB UVN 13:32 → EDSTATUS 13:52 | DX: T81.31XA Disruption of external operation (surgical) wound, not elsewhere classified, initial encounter (principal) | CPT/HCPCS: 87070; 87075; 87077; 87186; 87205 ==

== ENCOUNTER → 2018-04-07 | Outpatient (CLI) | payer OTHER ==
[2018-04-07 16:45] LABS: Source, Urine Catheter
[2018-04-07 17:15] LABS: Appearance, Urine Clear (Clear); Bilirubin, Urine Neg (Neg); Blood, Urine 4+ (Neg); Color, Urine Yellow (P-Yellow); Glucose Qualitative, Urine Neg (Neg); Ketones, Urine Neg (Neg); Leukocyte Esterase, Urine 3+ (Neg); Nitrite, Urine Neg (Neg); Protein, Urine 1+ (Neg); Specific Gravity, Urine 1.015 (1.003-1.022); Urobilinogen, Urine NORM (Normal)
[2018-04-07 17:55] LABS: Bacteria Not Seen /hpf; Red Blood Cells, Urine 0-2 /hpf (0-2); Squamous Epithelial Cells Not Seen /hpf (Few)
== END | disposition home or self-care (01) ==
LOC: EDSTATUS 10:41 → LAB UVN 16:42
PROVIDERS: Family Medicine
DX: N39.0 Urinary tract infection, site not specified (principal)
CPT/HCPCS: 81001; 87077; 87086; 87147; 87186

== ENCOUNTER 2018-07-04 16:21 | Inpatient (IN) | payer OTHER ==
[~2018-07-04] VITALS: Ht 165.1 cm; Wt 153.0 kg
[~2018-07-04 16:21] MED LIST changes: -INSU100I6 SC; +NOVOLOG FL100 UNIT/1 SC
[2018-07-04] MEDS ORDERED: BUPR75 PO (16:44)
[2018-07-04] MEDS ORDERED: ONDA4ODT MM (16:44)
[2018-07-04] MEDS ORDERED: Bactrim Ds Tab1 EACH PO (16:44)
[2018-07-04 17:23] LABS: Source, Urine Catheter
[2018-07-04 17:26] LABS: BASOPHILS ABSOLUTE AUTO 0.09 K/mm3 (0.00-0.23); BASOPHILS PERCENT AUTO 1 % (0-2); EOSINOPHILS ABSOLUTE AUTO 0.23 K/mm3 (0.00-0.68); EOSINOPHILS PERCENT AUTO 1 % (0-6); Hematocrit 41.4 % (37.0-53.0); Hemoglobin 13.1 g/dL (13.5-17.5); IMMATURE GRAN ABSOLUTE AUTO 0.08 K/mm3 (0.00-0.10); IMMATURE GRAN PERCENT AUTO 1 % (0-1); LYMPHOCYTES ABSOLUTE AUTO 1.81 K/mm3 (0.84-5.20); LYMPHOCYTES PERCENT AUTO 11 % (21-46); MONOCYTES ABSOLUTE AUTO 1.54 K/mm3 (0.16-1.47); MONOCYTES PERCENT AUTO 9 % (4-13); Mean Corpuscular HGB 27.2 pg (26.0-34.0); Mean Corpuscular HGB Conc 31.6 g/dL (31.5-36.5); Mean Corpuscular Volume 86 fL (80-100); Mean Platelet Volume 10.7 fL (9.1-12.4); NEUTROPHILS ABSOLUTE AUTO 12.96 K/mm3 (1.96-9.15); NEUTROPHILS PERCENT AUTO 78 % (41-73); Platelet Count 314 K/mm3 (150-400); RDW Coefficient Variation 14.7 % (11.7-14.2); RDW Standard Deviation 46.8 fL (35.1-46.3); Red Blood Cell Count 4.82 M/mm3 (4.30-5.90); White Blood Cell Count 16.71 K/mm3 (4.00-11.30)
[2018-07-04 17:29] LABS: Bilirubin, Urine Neg (Neg); Blood, Urine 5+ (Neg); Glucose Qualitative, Urine 1+ (Neg); Ketones, Urine 1+ (Neg); Leukocyte Esterase, Urine 3+ (Neg); Nitrite, Urine Neg (Neg); Protein, Urine 2+ (Neg); Urobilinogen, Urine 1+ (Normal)
[2018-07-04 17:35] LABS: PCO2 Arterial 56.4 mmHg (35-45); pH Blood Arterial 7.34 (7.35-7.45)
[2018-07-04 17:36] LABS: PO2 Arterial 42.4 mmHg (80-100)
[2018-07-04 17:41] LABS: Alanine Aminotransfer (ALT/SGP 16 U/L (12-78); Albumin, Blood 2.7 g/dL (3.4-5.0); Albumin/Globulin Ratio 0.6 (0.8-1.8); Alk Phos 107 U/L (50-136); Anion Gap 7 mmol/L (6-16); Aspartate Aminotrans (AST/SGOT 16 U/L (12-37); Bilirubin, Total 0.6 mg/dL (0.1-1.0); Blood Urea Nitrogen 27 mg/dL (8-24); Bun/Creatinine Ratio 30.5 (12.0-20.0); CO2, Blood 29 mmol/L (21-32); Calcium, Blood 9.1 mg/dL (8.5-10.1); Chloride, Blood 100 mmol/L (98-108); Creatinine, Blood 0.89 mg/dL (0.60-1.20); Globulin, Blood 4.9 g/dL (2.2-4.0); Glomerular Filtration Rate >60 (60-); Glucose, Blood 270 mg/dL (70-99); Potassium, Blood 4.4 mmol/L (3.5-5.5); Sodium, Blood 136 mmol/L (136-145); Total Protein, Blood 7.6 g/dL (6.4-8.2); Troponin I <0.015 ng/mL (0.000-0.040)
[2018-07-04 18:03] LABS: Appearance, Urine Hazy (Clear); Color, Urine Yellow (P-Yellow)
[2018-07-04 18:07] LABS: Amorphous Light (0-Heavy); Bacteria Few /hpf; Mucus Mod (0-Heavy); Squamous Epithelial Cells Few /hpf (Few); White Blood Cells, Urine 25-50 /hpf (0-5)
[2018-07-04] MEDS ORDERED: ACIDOPHILUS1 EAC2 PO (18:23)
[2018-07-04] MEDS ORDERED: BISA5EC PO (18:24)
[2018-07-04] MEDS ORDERED: GAVILAX17 GM PO (18:25)
[2018-07-04] MEDS ORDERED: Florastor250 MG PO (18:26)
[2018-07-04] MEDS ORDERED: INSULANPEN SC (18:32)
[2018-07-04] MEDS ORDERED: ANTIFUNGAL POWD71 GM TOP (18:34)
[2018-07-04 19:29] LABS: International Normalized Ratio 1.09; Prothrombin Time Results 11.5 Sec (9.7-11.5)
--- NOTE | 2018-07-04 20:30 | NUR ---
ASSUMED CARE REPORT TAKEN FROM ED RN. PT ARRIVED TO UNIT ON STRETCHER. PT TRASFERED TO HOSP BED WITH 4 PERS TRANSFER. 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 PT A0X3 W/ OCCASIONAL CONFUSION. RESP SLIGHTLY TACHYPNIC ON 3L NC W/ SATS 91-93%. DOROTEO CP, OR OTHER PAIN. REPORTS WEAKNESS TO BUE. LARGE DECUBITAL ULCER NOTED TO COCCYX, PER ED RN [facility] STAFF REPORTS WAS NOT THERE PREVIOUS DAY. ULCER NOTED TO BE SEEPING SEROUS FLUID, UNABLE TO OBTAIN PIC FOR CHART AT THIS TIME D/T CAMERA NOT WORKING. WILL REATTEMPT TO TAKE PICTURE FOR CHART, CLEAN MEPILEX WAS PLACED OVER ULCER AND HIPS FLOATED ON PILLOWS TO REDUCE PRESSURE TO AREA. BIPAP IN ROOM W/ SETTING PLACED BY RT. NS INFUSING IN BOLUSES PER SEPSIS PROTOCOL VIA PIV ALONG W/ ABX. CALL LIGHT IS IN REACH.
[2018-07-05 03:44] LABS: BASOPHILS ABSOLUTE AUTO 0.09 K/mm3 (0.00-0.23); BASOPHILS PERCENT AUTO 1 % (0-2); EOSINOPHILS ABSOLUTE AUTO 0.47 K/mm3 (0.00-0.68); EOSINOPHILS PERCENT AUTO 3 % (0-6); Hematocrit 35.9 % (37.0-53.0); Hemoglobin 11.2 g/dL (13.5-17.5); IMMATURE GRAN ABSOLUTE AUTO 0.08 K/mm3 (0.00-0.10); IMMATURE GRAN PERCENT AUTO 1 % (0-1); LYMPHOCYTES ABSOLUTE AUTO 2.08 K/mm3 (0.84-5.20); LYMPHOCYTES PERCENT AUTO 12 % (21-46); MONOCYTES ABSOLUTE AUTO 1.28 K/mm3 (0.16-1.47); MONOCYTES PERCENT AUTO 8 % (4-13); Mean Corpuscular HGB Conc 31.2 g/dL (31.5-36.5); Mean Corpuscular Volume 87 fL (80-100); Mean Platelet Volume 10.6 fL (9.1-12.4); NEUTROPHILS PERCENT AUTO 76 % (41-73); Platelet Count 210 K/mm3 (150-400); RDW Coefficient Variation 14.7 % (11.7-14.2); RDW Standard Deviation 47.1 fL (35.1-46.3); Red Blood Cell Count 4.15 M/mm3 (4.30-5.90)
[2018-07-05 03:59] LABS: Anion Gap 6 mmol/L (6-16); Blood Urea Nitrogen 23 mg/dL (8-24); Bun/Creatinine Ratio 29.2 (12.0-20.0); CO2, Blood 27 mmol/L (21-32); Calcium, Blood 8.4 mg/dL (8.5-10.1); Chloride, Blood 106 mmol/L (98-108); Creatinine, Blood 0.79 mg/dL (0.60-1.20); Glomerular Filtration Rate >60 (60-); Glucose, Blood 208 mg/dL (70-99); Potassium, Blood 4.1 mmol/L (3.5-5.5); Sodium, Blood 139 mmol/L (136-145)
[2018-07-05 04:58] LABS: PCO2 Arterial 46.5 mmHg (35-45); PO2 Arterial 87.2 mmHg (80-100); pH Blood Arterial 7.41 (7.35-7.45)
--- NOTE | 2018-07-05 05:50 | NUR ---
SHIFT SUMMARY PT SLEEPING IN ROOM COMFORTABLY. PT HAD NO ACUTE CHANGES IN STATUS SINCE ARRIVAL TO UNIT. PT WORE BIPAP FOR MAJORITY OF THE NIGHT INTO THIS AM, TOLERATING WELL. RESP EVEN UNLABORED ON BIPAP W/ SATS >95%. ABG REDONE THIS AM, LEVELS MUCH IMPROVED. ATTEMPTED TO GET PICTURE OF WOUND ON COCCYX THIS AM. PT REFUSED TURNING FOR PICTURE. REPORTS TIRED AND WANTS TO SLEEP. PT AGREED TO ALLOW PICTURE TO BE TAKEN FOR CHART "LATER WHEN I WAKE UP". WILL REPORT TO DAY SHIFT RN. DENIES PAIN THIS AM. L HIP FLOATED ON PILLOW, BLE FLOATED ON PILLOWS. CALL LIGHT IN REACH. WILL CONT TO MONITOR UNTIL SHIFT CHANGE.
--- NOTE | 2018-07-05 16:14 | NUR ---
TRANSFER OF CARE: CARE TRANSFERRED TO DUSTIN WOODARD. PT ALERT; ORIENTED TO SELF; IRRITABLE. HX B BKA; PT ON BEDREST. REPORT GIVEN TO ONCOMING RN.
--- NOTE | 2018-07-05 17:23 | NUR ---
NURSING PCU DAYSHIFT SUMMARY: Assumed care of pt at approx 1600. Respiratory/cardiac status stable at this time. Pt appears confused w/conversation though cooperative w/care. No s/s of acute distress. PCT currently at bedside assisting w/supper. Pt denies any current needs. Cont to monitor until rpt is given to YOANA RN.
--- NOTE | 2018-07-05 19:30 | NUR ---
ASSUEMD CARE PT RESTING IN ROOM COMFROTABLY AT THIS TIME. PER DAY SHIFT RN PT HAS NO ACUTE CHANGES IN STATUS T/O DAY. RESP EVEN UNLABORED ON 3L NC W/ SATS >92%. DENIES CP AND SOB. PT HIPS FLOATED ON PILLOWS. CATH CARE PROVIDED AT START OF SHIFT. CALL LIGHT IN REACH.
--- NOTE | 2018-07-06 06:15 | NUR ---
SHIFT SUMMARY PT RESTING IN ROOM COMFORTABLY AT THIS TIME. NO ACUTE CHANGES IN STATUS OVERNGHT. PT WAS TO BE ON CPAP T/O NIGHT FOR A REPEAT ABG THIS AM. PT REFUSED TO WEAR CPAP AFTER ROUGHLY 30-40MIN. PT BECAME AGGITATED AND ANGRY AND DEMANDED CPAP TO BE REMOVED. PT WAS EDUCATED ABOUT NESECITY BY RT AND THIS RN. PT CONTINUES TO REFUSE CPAP. RESP EVEN UNLABORED ON 3L NC W/ SATS >92%. DENIES ANY CP. PT HAS BEEN RESTLESS T/O NIGHT CALLING OUT IN ROOM. AT TIMES IRRITABLE W/ STAFF ABOUT TURNS. PT IS UNABLE TO ASSIST WITH ANY MOEVEMENTS AND YELLS AT STAFF DURING TURNS, QUESTIONING NEED. PT AGAIN EDUCATED ABOUT ULCER ON COCCYX AND NEED TO KEEP TURNING PT TO REDUCE CONTINUED PRESSURE ON ULCER. PT REPORTS UNDERSTANDING. CALL LIGHT IS WITHIN REACH OF PT. PT UNABLE TO LIFT HANDS TO UTILIZE CALL LIGHT, CALLS OUT WHEN ENEDS ASSISTANCE.
[2018-07-06 08:23] LABS: PO2 Arterial 69.9 mmHg (80-100); pH Blood Arterial 7.45 (7.35-7.45)
--- NOTE | 2018-07-06 09:09 | NUR ---
RECEIVED REPORT AND ASSUMED CARE OF PATIENT. PT ASSISTED TO SITTING POSITION FOR MEAL ASSISTANCE AND SAFETY IN SWALLOWING PILLS AND FOOD. PT IS IRRITABLE, ASKED WHY, HE MENTIONED HE DOES NOT HAVE ANY FRIENDS OF FAMILY LEFT. PT IS DEPRESSED, WORKED TO ENCOURAGE PT AND USE POSITIVE THERAPUTIC COMMUNICATION. WILL CONTINUE TO MONITOR AND PREPARE FOR TRANSFER TO MEDICAL PER DR. BERMUDEZ.
--- NOTE | 2018-07-06 18:37 | NUR ---
SHIFT SUMMARY PATIENT TRANSFERRED UP FROM PCU. HE IS ON CONTACT FOR MRSA VRE AND ECOLI. NO ACUTE CONCERNS AT THIS TIME. HE IS REFUSING TO PUT HIS OXYGEN BACK ON.
--- NOTE | 2018-07-06 18:44 | NUR ---
GAVE REPORT TO DUSTIN MCCOY, TRANSFERRED TO MEDICAL FLOOR ROOM 306. PT HAD A GOOD DAY, HIS AFFECT WAS SLIGHTLY IMPROVED THIS EVENING AFTER HIS BATH AND LINEN CHANGE. PT RESPONDS WELL TO POSITIVE ENCOURAGEMENT AND SLOW MOVEMENT. PT HAS BEEN TITRATED DOWN TO 0.5-1 LPM VIA NC. PT O2 SAT HAS RANGED FROM 88-92% THROUGHOUT THE SHIFT.
--- NOTE | 2018-07-07 06:08 | NUR ---
67 year old Male continues in isolation for VRE and Ecoli and had positive blood culture. He is bed or wc bound baseline, on lift bed and 2 max for small positional changes. He is alert and confused. He made no attempts to climb out of bed. He has large pressure injury to sacral coccyx and dressing has sm amt green yellow drainage. Continues on 2 antibiotics. oxygen 1 l nc and cont pulse ox. Hollers out does not use call yancey.
--- NOTE | 2018-07-07 12:54 | NUR ---
Initial palliative care consult: Yoel is a 67 year old who was admitted for bilat pneumonia, UTI and sepsis. He lives at and has done so for the past 7-8 years per his report. He has a history of bilat BKA, DM, HTN, morbid obesity, sleep apnea, renal insufficiency, chronic indwelling contreras cath. Yoel is alert and oriented x 1 this afternoon. He thought he was at rehab and he was unable to give a date or tell this database report writer who the president is. He states that his brother is his alternate decision maker. He reports that he spends his days at either in bed or in the chair. He reports that he doesn't have prosthetics for his legs. Staff have to feed him while he is here as he doesn't lift his arms to attempt to feed himself. He has a chronic indwelling contreras catheter. Nursing reports he has a wound which has not been visualized by this database report writer. Pt requests to have his position changed for comfort, but when this database report writer attempted to reposition him he refused to be moved. PC will attempt to contact to speak with nurses and to contact pt's brother for information re: his normal routine, mobility as pt is not an accurate historian at this time. Will also obtain POLST form from if pt has one on file there.
--- NOTE | 2018-07-07 15:35 | NUR ---
Mr. Diallo was rather slow to respond to me. When I introduced myself as a trauma counsellor, he began a long litany of loved ones and pets who have recently. I provided emtional affirmation of sorrow and grief. He denied emotional needs, and assured me he was "okay." He declined prayer. I will remain available.
--- NOTE | 2018-07-07 16:59 | NUR ---
SHIFT SUMMARY NO CHANGES IN ASSESSMENT AT THIS TIME. VSS. PT REPOSITIONED THROUGHOUT SHIFT. PT TOLERATES REPOSITIONS, BUT DISLIKES DOING THEM. PT CONTINUES TO BE CONFUSED. A&OX1. PT HALLUCINATES AT TIMES. PT REFUSED RT TREATMENTS & TOPICAL MEDICATIONS IN THE MIDDLE OF THE SHIFT. PT REORIENTED NEEDED. WILL CONTINUE TO MONITOR UNTIL TURNOVER IS COMPLETE.
--- NOTE | 2018-07-08 06:06 | NUR ---
SUMMARY: PT CONT'S ORIENTED TO SELF ONLY W/OCCASIONAL HALLUCINATIONS AND CALLS INTO HALLS FOR ASSISTANCE. HE IS BED BOUND W/LIFT REQUIRED D/T BILAT BKA'S. TURN SCHEDULE MAINTAINED. MEPILEX REMAINED C/D/I TO DECUB COCCYX ULCER. PILLOWS PROVIDED FOR SUPPORT OF BONY PROMINENCES. HE DENIED PRN PAIN MEDS DESPITE APPEARING PAINFUL W/REPOSITIONING. FEEDER ASSIST REQUIRED BUT TOOK MEDS FINE WHOLE, 1 AT TIME W/WATER AND ASP PREC'S MAINTAINED. CHRONIC MIDDLETON IS PATENT/DRAINING. NO ACUTE CHANGES, VSS/AFEBRILE. WILL MONITOR AND REPORT TO DAY RN.
[2018-07-08] MEDS ORDERED: ALBU2.5V5 INH (13:07)
[2018-07-08] MEDS ORDERED: LEVO750 PO (13:07)
[2018-07-08] MEDS ORDERED: ALBU3IS INH (13:08)
[2018-07-08] MEDS ORDERED: Pedi-Dri 100,0060 GM TOP (13:10)
--- NOTE | 2018-07-08 17:42 | NUR ---
DISCHARGE SUMMARY: MIDDLETON CATH REMAINS IN PLACE UPON D/C TO [facility]; PATENT AND DRAINING. REMAINS ON 1L OF HUMIDIFIED O2 VIA VC. OVERHEAD LIFT FOR ALL TRANSFERS. HE IS ABLE TO SWALLOW 1 PILL AT A TIME WITH THIN LIQUIDS. HE NEEDS ASSISTANCE WITH MEALS HE IS NOT ABLE TO LIFT HIS ARMS OR SUPPORT THE WEIGHT OF THEM. REPORT CALLED TO EVERETT AT [facility] CARE MANAGEMENT TO SCHEDULE FOLLOW UP APPOINTMENTS AND CALL WITH DATES AND TIMES.
== END 2018-07-08 16:53 | DRG 871 ==
LOC: ER 16:21 → PCU 18:50 → MEDS 18:50 → PCU 20:20 → MEDS 20:30 → EDPENDDIS 07-08 12:00 → ENPENDDIS 07-08 12:00 → MEDS 07-08 16:53
PROVIDERS: Emergency Medicine; Internal Medicine Pulmonary Disease; ADMIT Internal Medicine
PROC: 5A09357 Assistance with Respiratory Ventilation, Less than 24 Consecutive Hours, Continuous Positive Airway Pressure (ICD-10-PCS; principal; 2018-07-04)
DX: A41.9 Sepsis, unspecified organism (principal); J96.01 Acute respiratory failure with hypoxia; J18.9 Pneumonia, unspecified organism; J96.02 Acute respiratory failure with hypercapnia; E66.2 Morbid (severe) obesity with alveolar hypoventilation; T83.511A Infection and inflammatory reaction due to indwelling urethral catheter, initial encounter; Z68.43 Body mass index [BMI] 50.0-59.9, adult; N39.0 Urinary tract infection, site not specified; R65.20 Severe sepsis without septic shock; I10 Essential (primary) hypertension; E78.5 Hyperlipidemia, unspecified; E11.9 Type 2 diabetes mellitus without complications; Z89.512 Acquired absence of left leg below knee; Z89.511 Acquired absence of right leg below knee; Z87.891 Personal history of nicotine dependence; Z79.1 Long term (current) use of non-steroidal anti-inflammatories (NSAID); Z66 Do not resuscitate; R13.10 Dysphagia, unspecified; B96.20 Unspecified Escherichia coli [E. coli] as the cause of diseases classified elsewhere; L89.159 Pressure ulcer of sacral region, unspecified stage; W19.XXXA Unspecified fall, initial encounter; Y93.9 Activity, unspecified; Y92.10 Unspecified residential institution as the place of occurrence of the external cause; Z79.4 Long term (current) use of insulin
CPT/HCPCS: 36415; 36600; 51702; 71045; 80048; 80053; 81001; 82803; 82947; 83605; 83880; 84484; 85025; 85610; 85730; 87040; 87077; 87086; 87186; 92610; 93005; 93010; 94640; 94660; 94762; 96365-59; 99285-25; J0456; J0696; J1650; J2020; J7030; J7050